=== PATIENT | female | born 1960 | race Caucasian/White ===

== ENCOUNTER → 2021-01-21 10:21 | Outpatient (CLI) | payer BC, SELFPAY ==
--- NOTE | ~2021-01-21 | XR_ITS ---
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 No fracture, dislocation, avascular necrosis or bone destruction of either hip is detected. Hip joint spaces are symmetric and appear relatively well preserved. IMPRESSION: Transitional lumbosacral vertebra No significant abnormality of the hips Reviewed, dictated and finalized at location A.
== END ==
PROVIDERS: Visit Provider Nurse Practitioner Family
DX: M19.90 Unspecified osteoarthritis, unspecified site (principal); Z78.0 Asymptomatic menopausal state; Q76.49 Other congenital malformations of spine, not associated with scoliosis
CPT/HCPCS: 73521

== ENCOUNTER 2021-01-30 12:43 | Outpatient (CLI) | payer BC, SELFPAY ==
--- NOTE | ~2021-01-30 | DEXA_ITS ---
Bone Density Report Name: Karen Garvey Age: 60 Sex: Female Ethnicity: White Date of : 1960 Indication: postmenopausal; parental hip fracture; Referring Provider: Joel, Marj Asif Study: Bone densitometry was performed. Exam Date: January 30, 2021 Accession number: [id number] Bone Density: Region BMD T-score Z-score Classification AP Spine (L1-L4) 0.821 -2.1 -0.7 Osteopenia Femoral Neck (Left) 0.607 -2.2 -0.9 Osteopenia Total Hip (Left) 0.706 -1.9 -1.0 Osteopenia Total Hip Bilateral Avg 0.723 -1.8 -0.8 Osteopenia Femoral Neck (Right) 0.643 -1.9 -0.6 Osteopenia Total Hip (Right) 0.740 -1.7 -0.7 Osteopenia World Health Organization criteria for BMD impression classify patients as: Normal (T-score at or above -1.0), Osteopenia (T-score between -1.0 and -2.5), or Osteoporosis (T-score at or below -2.5). 10-year Fracture Risk(1): Major Osteoporotic Fracture 16% Hip Fracture 1.4% Reported Risk Factors: [place] (), Neck BMD=0.607, BMI=19.3, parental fracture (1) FRAX(R) Version 3.08. Fracture probability calculated for an untreated patient. Fracture probability may be lower if the patient has received treatment. Clinical Information Provided by Patient: Parent has had a hip fracture Patient maximum height was 67.5 Menopause Age: 53 No regular weight bearing exercise Drinks caffeinated beverages Onset of menses at age 14 Number of children 2 Impression: The patient has low bone mass, based on the Left Femoral Neck T-score. The patient has an estimated ten-year risk of hip fracture of 1.4% and an estimated ten-year risk of major fracture of 16%, based on the WHO FRAX algorithm. The patient has risk factors, including: parental hip fracture. Discussion: BONE DENSITY IS LOW AT ONE OR MORE SKELETAL SITES. This patient's lowest T-score is low at one or more skeletal sites. It meets the World Health Organization's (WHO) criteria for ?low bone mass? (T-score between -1.0 and -2.5). The patient's 10-year risk of fracture as calculated by FRAX is less than the threshold where pharmacological therapy is recommended by the National Osteoporosis Foundation (NOF). However, all treatment decisions require clinical judgment and consideration of individual patient factors, including patient preferences, comorbidities, previous drug use, risk factors not captured in the FRAX model (e.g., frailty, falls, vitamin D deficiency, increased bone turnover, interval significant decline in bone density) and possible under or overestimation of fracture risk by FRAX. The patient should follow a healthful lifestyle (good nutrition with adequate calcium and vitamin D, and appropriate weight-bearing exercise). Follow-Up: Consider repeating this study in 2 to 3 years to reassess this patient's status, or sooner if there is some ne
== END 2021-01-30 12:44 | disposition home or self-care (01) ==
LOC: ANHIMG 12:46
PROVIDERS: PCP Nurse Practitioner Family; Visit Provider Nurse Practitioner Family
DX: Z78.0 Asymptomatic menopausal state (principal); M85.88 Other specified disorders of bone density and structure, other site; M85.851 Other specified disorders of bone density and structure, right thigh; M85.852 Other specified disorders of bone density and structure, left thigh
CPT/HCPCS: 77080

== ENCOUNTER 2021-03-01 17:56 | Emergency (ER) | payer BC, SELFPAY ==
[2021-03-01 18:18] VITALS: BP 111/73; PULSE 100; RESP 18; TEMP 37.3; O2SAT 97
--- NOTE | 2021-03-01 18:31 | ED.URI ---
HPI - URI/Sore Throat General Chief Complaint: Fever Stated Complaint: Chills,Fever,Body Aches Time Seen by Provider: 03/01/21 18:33 Source: patient, RN notes reviewed and old records reviewed Mode of arrival: ambulatory Limitations: no limitations History of Present Illness HPI Narrative: 60-year-old female who presents to [facility] with complaints of fever, chills, and body aches for the past 3 days. She reports that she has afternoon fevers with chills, fatigue, and body aches with fevers up to 102.2F the highest. She reports that she takes Ibuprofen and fever goes down and she feels better. Patient denies any cough or any shortness of breath, no nasal drainage or stuffiness, no ear pain or any sore throat. Patient admits to having to get up more often at night but denies any burning on urination any flank pain, or suprapubic tenderness. Patient states that she has had her covid vaccinations and she got an OTC Covid test from [facility] on and it was negative. MD elicited complaint: fever and other (body aches) Associated symptoms: fever, chills and other (body aches) Treatments prior to arrival: ibuprofen Related Data Allergies Allergy/AdvReac Type Severity Reaction Status Date / Time Sulfa (Sulfonamide Allergy Rash Verified 03/01/21 18:37 Antibiotics) Review of Systems Review of Systems: CONSTITUTIONAL: Positive episodic fevers, chills, or sweats. EYES: Denies visual changes, redness, or discharge. ENT: Denies rhinorrhea, congestion, sore throat, or otalgia. CARDIOVASCULAR: Denies chest pain, palpitations, or edema. RESPIRATORY: Denies cough or dyspnea. GASTROINTESTINAL: Denies abdominal pain, nausea, vomiting, or diarrhea. GENITOURINARY: Denies dysuria or hematuria. SKIN: Denies rash or itching. MUSCULOSKELETAL: Denies back pain, joint pain, reports body aches NEUROLOGIC: Denies headache, numbness, or weakness. PSYCHIATRIC: Denies anxiety or depression. All systems reviewed & are unremarkable except as noted in HPI and below PMFSH Past Medical History Medical History (Updated 03/01/21 @ 18:[address] NP) Shingles TIA (transient ischemic attack) Surgical History Surgical History (Updated 03/01/21 @ 18:[address] NP) No history of previous surgery Family History Family History (Updated 03/01/21 @ 18:[address] NP) Father Heart disease Mother Heart disease Social History Social History (Updated 03/01/21 @ 18:[address] NP) Smoking status: Never smoker Alcohol intake: current Alcohol use details: social Substance use: never Living arrangements: with family Gender identity (if verbalized by the patient): Female Comments At time of signature, agree with nursing past medical, surgical, social and family history. There is no relevant family history pertinent to the presenting complaint Exam Narrative: GENERAL: Well-appearing, well-nourished, and in no acute distress. HEAD: Normocephalic, atraumatic. EYES: PERRLA and EOMI. ENT: Nares clear, no rhinorrhea or epistaxis. Mucous membranes moist.TM's normal with good light reflex, throat pink with no lesions or exudates no tonsil enlargement NECK: Supple. no lymphadenopathy CHEST: Clear to auscultation. No respiratory distress. SAO2 97% on room air HEART: Regular rate and rhythm. No murmur heard. Normal peripheral pulses. ABDOMEN: Soft, nontender, nondistended, normal active bowel sounds.no CVA tenderness on exam EXTREMITIES: Normal range of motion. No edema. SKIN: Warm, dry, no rash. NEURO: No focal deficits. Alert and oriented x3. Course Vital Signs Vital signs: Vital Signs Temperature 37.3 C 03/01/21 18:18 Pulse Rate 100 03/01/21 18:18 Respiratory Rate 18 03/01/21 18:18 Blood Pressure 111/73 03/01/21 18:18 Pulse Oximetry 97 03/01/21 18:18 Temperature 37.3 C 03/01/21 18:18 Pulse Rate 100 03/01/21 18:18 Respiratory Rate 18 03/01/21 18:18
== END 2021-03-01 19:08 | disposition home or self-care (01) ==
PROVIDERS: Emergency Provider Registered Nurse; PCP Nurse Practitioner Family
DX: N39.0 Urinary tract infection, site not specified (principal); Z20.822 Contact with and (suspected) exposure to COVID-19; Z86.73 Personal history of transient ischemic attack (TIA), and cerebral infarction without residual deficits
CPT/HCPCS: 81003; 87086; 87426; 99213; C9803; G0463